=== PATIENT | female | born 2000 | race African-American/Black ===

== ENCOUNTER 2020-11-11 06:13 | Inpatient (IN) ==
[2020-11-11] MEDS ORDERED: MEPERIDINE 50 MG/1 ML VIAL IM PRN (07:57)
[2020-11-11] MEDS ORDERED: BUTORPHANOL 2 MG/ML VIAL IV PRN (07:57)
[2020-11-11] MEDS ORDERED: ONDANSETRON 4 MG/2 ML VIAL IV PRN ×3 (07:57→15:40)
[2020-11-11] MEDS ORDERED: ACETAMINOPHEN 325 MG TABLET PO PRN ×2 (07:57→15:40)
[2020-11-11] MEDS ORDERED: FAMOTIDINE 20 MG/2 ML VIAL IV ONE (08:02)
[2020-11-11] MEDS ORDERED: PROMETHAZINE 25 MG/1 ML VIAL IM PRN (08:02)
[2020-11-11] MEDS ORDERED: NALOXONE 0.4 MG/ML VIAL IV PRN (08:02)
[2020-11-11] MEDS ORDERED: hydrOXYzine HCL 25 MG/1 ML VIAL IM PRN (08:02)
[2020-11-11] MEDS ORDERED: LACTATED RINGERS 1,000 ML IV ONE (08:02)
[2020-11-11] MEDS ORDERED: ePHEDrine 50 MG/ML VIAL IV PRN (08:02)
[2020-11-11] MEDS ORDERED: diphenhydrAMINE 50 MG/1 ML VIAL IV PRN ×3 (08:02→23:52)
[2020-11-11] MEDS ORDERED: CITRIC ACID/SODIUM CITRATE 30 ML UDCUP PO ONE (08:02)
[2020-11-11 08:05] LABS: Basophils % 0.2 % (0.0-0.8); Eosinophils # 0.1 10*3/uL (0.0-0.87); Eosinophils % 0.8 % (0.00-10.9); Hematocrit 33.7 VOL% (35.7-47.0); Hemoglobin 10.5 GM/DL (12.0-16.0); Immature Granulocytes % 1.8 %; Immature Granulocytes Absolute 0.25 #; Lymphocytes # 2.4 10*3/uL (1.4-4.0); Lymphocytes % 16.9 % (21.3-54.2); Mean Corpuscular HGB Conc 31.2 GM/DL (32-36); Mean Corpuscular Volume 84.7 FL (87-102); Mean Platelet Volume 10.3 FL (9.6-12.0); Monocytes % 7.6 % (1.7-12.7); Neutrophils % 72.7 % (38.7-73.9); Platelet Count 360 T/CUMM (130-400); Red Blood Count 3.98 MC/CUMM (3.8-5.5); Red Cell Distribution Width 14.2 % (9.3-17.3); White Blood Count 14.1 T/CUMM (4-12)
[2020-11-11 08:28] LABS: Alanine Aminotransferase 20 U/L (13-56); Albumin 2.6 G/DL (3.4-5.0); Alkaline Phosphatase 175 U/L (45-117); Aspartate Amino Transferase 18 U/L (0-37); Bilirubin,Total < 0.39 MG/DL (0.2-1.0); Blood Urea Nitrogen 10 MG/DL (7-18); Carbon Dioxide 24 MMOL/L (21-32); Estimated Glom Filtration Rate 158 ML/MIN; Glucose 82 MG/DL (74-106); Osmolality,Calculated 272.7 MOS/KG (273-304); Potassium 4.4 MMOL/L (3.5-5.1); Sodium 138 MMOL/L (136-145)
[2020-11-11] MEDS ORDERED: fentaNYL 2 MCG/ROPIV 0.2% EPID 100 ML EPIDURAL SCH (08:30)
[2020-11-11] MEDS: LACTATED RINGERS 1,000 ML IV SCH ×2 (08:39→18:24)
[2020-11-11] MEDS ORDERED: OXYTOCIN/LR 20 UNIT/1,000 ML BAG IV ONE ×3 (09:03→15:40)
[2020-11-11] MEDS ORDERED: OXYTOCIN/LR 20 UNIT/1,000 ML BAG IV SCH (09:30)
[2020-11-11 12:12] LABS: Bilirubin,Urine Negative (Negative); Blood, Urine Negative (Negative); Glucose,Urine (UA) Negative (Negative); Ketones,Urine Negative (Negative); Mucus,Urine Occasional /LPF (Occasional); Nitrite,Urine Negative (Negative); Protein,Urine Negative; RBC,Urine <1 /HPF (0-4); Squamous Epithelial Cell,Urine Occasional /HPF (0-10); Urine Appearance CLEAR (Clear); Urine Color Yellow (Yellow); Urine Specific Gravity 1.019 (1.001-1.035); Urine Urobilinogen < 2.0 EU/DL (0.2-1.0)
[2020-11-11] MEDS ORDERED: METHYLERGONOVINE 0.2 MG/1 ML AMP ONE (12:27)
[2020-11-11] MEDS ORDERED: miSOPROStoL 200 MCG TABLET ONE (12:27)
[2020-11-11] MEDS ORDERED: TRANEXAMIC ACID 1,000 MG/10 ML VIAL ONE (12:27)
[2020-11-11] MEDS ORDERED: CARBOPROST TROMETHAMINE 250 MCG/ML AMP IM ONE (12:28)
[2020-11-11] MEDS ORDERED: TERBUTALINE 1 MG/1 ML VIAL SUBCUT ONE (14:20)
[2020-11-11] MEDS ORDERED: TERBUTALINE 1 MG/1 ML VIAL ONE (14:20)
[2020-11-11] MEDS ORDERED: OXYTOCIN 10 UNIT/ML VIAL IM ONE (14:22)
[2020-11-11] MEDS ORDERED: ceFAZolin 2,000 MG/50 ML DUPLEX IV ONE ×2 (14:22→14:23)
[2020-11-11] MEDS ORDERED: OXYTOCIN/LR 30 UNIT/1,000 ML BAG IV ONE (14:22)
[2020-11-11] MEDS ORDERED: OXYTOCIN 10 UNIT/ML VIAL ONE (14:24)
[2020-11-11 14:52] LABS: Cord Arterial Blood HCO3 21.5 MMOL/L
[2020-11-11 14:55] LABS: Cord Venous Blood HCO3 20.9 MMOL/L; Cord Venous Blood PCO2 57.2 MMHG
[2020-11-11] MEDS ORDERED: SODIUM BICARBONATE 10 MEQ/10 ML SYRINGE IV ONE (15:21)
[2020-11-11] MEDS ORDERED: RHO(D) IMMUNE GLOBULIN 300 MCG SYRINGE IM ONE (15:40)
[2020-11-11] MEDS ORDERED: LACTATED RINGERS 1,000 ML IV SCH (16:00)
[2020-11-11] MEDS ORDERED: ePHEDrine 50 MG/ML VIAL IV ONE (16:07)
[2020-11-11] MEDS ORDERED: ACETAMINOPHEN 500 MG TABLET PO SCH (21:00)
[2020-11-11] MEDS ORDERED: KETOROLAC 30 MG/1 ML VIAL IV SCH (21:00)
[2020-11-11] MEDS: KETOROLAC 30 MG/1 ML VIAL IV SCH (21:07)
[2020-11-11] MEDS: DOCUSATE SODIUM 100 MG CAPSULE PO SCH (21:12)
[2020-11-11 23:07] LABS: Basophils # 0.1 10*3/uL (0.0-0.2); Basophils % 0.2 % (0.0-0.8); Hematocrit 32.8 VOL% (35.7-47.0); Hemoglobin 10.5 GM/DL (12.0-16.0); Immature Granulocytes % 1.1 %; Immature Granulocytes Absolute 0.38 #; Lymphocytes # 0.8 10*3/uL (1.4-4.0); Lymphocytes % 2.3 % (21.3-54.2); Mean Corpuscular Volume 83.9 FL (87-102); Monocytes % 6.2 % (1.7-12.7); Neutrophils % 90.2 % (38.7-73.9); Platelet Count 314 T/CUMM (130-400); Red Blood Count 3.91 MC/CUMM (3.8-5.5); Red Cell Distribution Width 14.4 % (9.3-17.3); White Blood Count 35.8 T/CUMM (4-12)
[2020-11-11] MEDS: ACETAMINOPHEN 500 MG TABLET PO SCH (23:50)
[2020-11-11] MEDS ORDERED: diphenhydrAMINE 50 MG/1 ML VIAL ONE (23:55)
[2020-11-12] MEDS: KETOROLAC 30 MG/1 ML VIAL IV SCH ×2 (03:34→07:55)
[2020-11-12 03:35] LABS: Hypochromasia Slight; Lymphocytes 1 % (20-55); Microcytosis 1+; Platelet Estimate Increased; Polychromasia Slight; Segmented Neutrophils 93 % (50-85); Total Cells Counted 100
[2020-11-12 05:34] LABS: Basophils # 0.1 10*3/uL (0.0-0.2); Basophils % 0.2 % (0.0-0.8); Eosinophils % 0.1 % (0.00-10.9); Hematocrit 28.2 VOL% (35.7-47.0); Hemoglobin 9.1 GM/DL (12.0-16.0); Immature Granulocytes % 1.3 %; Immature Granulocytes Absolute 0.39 #; Lymphocytes # 1.3 10*3/uL (1.4-4.0); Lymphocytes % 4.4 % (21.3-54.2); Mean Corpuscular HGB Conc 32.3 GM/DL (32-36); Mean Corpuscular Volume 83.2 FL (87-102); Mean Platelet Volume 10.7 FL (9.6-12.0); Monocytes % 5.5 % (1.7-12.7); Neutrophils % 88.5 % (38.7-73.9); Platelet Count 307 T/CUMM (130-400); Red Blood Count 3.39 MC/CUMM (3.8-5.5); Red Cell Distribution Width 14.3 % (9.3-17.3); White Blood Count 30.6 T/CUMM (4-12)
[2020-11-12 05:58] LABS: Band Neutrophils 9 % (0-10); Hypochromasia 1+; Lymphocytes 7 % (20-55); Microcytosis 1+; Platelet Estimate Normal; Segmented Neutrophils 81 % (50-85); Total Cells Counted 100
[2020-11-12] MEDS: METOCLOPRAMIDE 10 MG TABLET PO SCH ×2 (07:55→16:02)
[2020-11-12] MEDS: MULTIVITAMIN (PRENATAL) TABLET PO SCH (09:12)
[2020-11-12] MEDS: DOCUSATE SODIUM 100 MG CAPSULE PO SCH ×2 (09:12→19:55)
[2020-11-12] MEDS: FERROUS SULFATE 325 MG TABLET PO SCH (09:13)
[2020-11-12] MEDS: MAGNESIUM HYDROXIDE SUSP 30 ML UDCUP PO PRN ×2 (11:56→19:55)
[2020-11-12] MEDS: ACETAMINOPHEN 500 MG TABLET PO SCH ×2 (11:57→22:31)
[2020-11-12] MEDS: IBUPROFEN 800 MG TABLET PO PRN (19:55)
[2020-11-12] MEDS: SIMETHICONE CHEW 80 MG TABLET PO PRN (19:55)
[2020-11-13] MEDS: METOCLOPRAMIDE 10 MG TABLET PO SCH ×2 (00:20→07:51)
[2020-11-13] MEDS: IBUPROFEN 800 MG TABLET PO PRN (07:50)
[2020-11-13] MEDS: DOCUSATE SODIUM 100 MG CAPSULE PO SCH (09:11)
[2020-11-13] MEDS: MAGNESIUM HYDROXIDE SUSP 30 ML UDCUP PO PRN (09:11)
[2020-11-13] MEDS: MULTIVITAMIN (PRENATAL) TABLET PO SCH (09:11)
[2020-11-13] MEDS: SIMETHICONE CHEW 80 MG TABLET PO PRN (09:11)
[2020-11-13] MEDS: FERROUS SULFATE 325 MG TABLET PO SCH (09:11)
[2020-11-13 10:02] VITALS: BP 115/68
== END 2020-11-13 13:55 | disposition home or self-care (01) | DRG 540 ==
LOC: N.LDOUT 06:13 → N.LD 06:17 → N.OB 20:04
PROVIDERS: ADMIT Obstetrics & Gynecology; ATTEND Obstetrics & Gynecology
PROC: LDCSECT (ICD-10-PCS; 2020-11-11 14:29)